=== PATIENT | male | born 1980 | race Hispanic/Latino ===

== ENCOUNTER 2017-07-29 11:12 | Inpatient (IN) | payer OTHER ==
[2017-07-28 21:50] VITALS: BP 136/70
[~2017-07-29] VITALS: Ht 165.1 cm; Wt 79.4 kg
[2017-07-29] MEDS ORDERED: ACETAMINOPHEN 325 MG TAB PO STA (12:06)
[2017-07-29 13:23] LABS: BILIRUBIN,URINE NEGATIVE (NEGATIVE); CLARITY,URINE SL CLOUDY (CLEAR); COLOR,URINE YELLOW (YELLOW); KETONES,URINE NEGATIVE (NEGATIVE); LEUKOCYTE ESTERASE ,URINE TRACE (NEGATIVE); NITRITE,URINE NEGATIVE (NEGATIVE); PROTEIN,URINE DIPSTICK NEGATIVE (NEGATIVE); URINE UROBILINOGEN 0.2 mg/dL (0.2 - 1)
[2017-07-29 13:37] LABS: EPITHELIAL CELLS,URINE RARE /LPF; WBC,URINE (MAN) 0-5 /HPF (0-5)
[2017-07-29 13:38] LABS: CALCIUM OXALATE CRYSTALS,UR FEW (FEW)
--- NOTE | 2017-07-29 13:56 | Diagnostic Imaging Report ---
PROCEDURE: X-RAY CHEST, TWO VIEWS COMPARISON: None. INDICATIONS: HANDS AND FEET SWOLLEN AND PNEUMONIA FINDINGS: LUNGS: Left upper lobe airspace opacity. Nodular density in the lung bases may represent a nipple shadows. PLEURA: No effusions or pneumothorax. HEART \T\ MEDIASTINUM: The heart is within normal size-limits. BONES \T\ SOFT TISSUES: No acute findings. CONCLUSION: Left upper lobe pneumonia. Grabiel Parkinson D.O. Dictated by: Grabiel Parkinson D.O. on 07/29/2017 at 13:56 Electronically approved by: Grabiel Parkinson D.O. on 07/29/2017 at 13:56
[2017-07-29 14:12] LABS: BASOPHILS # (AUTO) 0.1 (0.0-0.1); BASOPHILS % 0.5 % (0.0-1.0); EOSINOPHILS # (AUTO) 0.4 (0.0-0.4); EOSINOPHILS % 2.7 % (0.0-6.0); HEMATOCRIT 39.4 % (38.2-49.6); HEMOGLOBIN 13.5 g/dL (14.0-18.0); LYMPHOCYTES # (AUTO) 1.8 (1.0-3.2); LYMPHOCYTES % 14.1 % (18.0-39.1); MEAN CORPUSCULAR HEMOGLOBIN 28.4 pg (28-32); MEAN CORPUSCULAR HGB CONC 34.3 g/dL (31-35); MEAN CORPUSCULAR VOLUME 82.8 fL (81-99); MONOCYTES # (AUTO) 1.4 (0.2-0.8); MONOCYTES % 11.1 % (4.4-11.3); NEUTROPHILS # (AUTO) 9.2 (2.1-6.9); NEUTROPHILS % 70.8 % (38.7-80.0); PLATELET COUNT 309 x10e3/uL (140-360); RED BLOOD COUNT 4.76 x10e6/uL (4.3-5.7); RED CELL DISTRIBUTION WIDTH 11.7 % (11.7-14.4)
[2017-07-29 14:40] LABS: ALANINE AMINOTRANSFERASE 24 IU/L (0-55); ALBUMIN 3.5 g/dL (3.5-5.0); ALBUMIN/GLOBULIN RATIO 0.7 (0.8-2.0); ALKALINE PHOSPHATASE 72 IU/L (40-150); ANION GAP 15.5 mmol/L (8-16); BLOOD UREA NITROGEN 8 mg/dL (7-26); BUN/CREATININE RATIO 10 (6-25); CALCIUM 9.1 mg/dL (8.4-10.2); CARBON DIOXIDE 23 mmol/L (22-29); CHLORIDE 102 mmol/L (98-107); CREATININE, SERUM 0.77 mg/dL (0.72-1.25); EST GLOMERULAR FILTRATION RATE > 60 ML/MIN (60-); GLUCOSE 102 mg/dL (74-118); POTASSIUM 3.5 mmol/L (3.5-5.1); SODIUM 137 mmol/L (136-145)
[2017-07-29] MEDS ORDERED: VANCOMYCIN HCL 1GM/NS 250 ML BAG IV SCH (15:30)
[2017-07-29] MEDS ORDERED: VANCOMYCIN 1GM/NS 250 ML 250 ML IV SCH (16:00)
--- OUTSIDE RECORDS SUMMARY | 2017-07-29 16:01 | XMS REPORT ---
Author Author [facility] Address Unknown Phone Unavailable Care Team Providers Care Traffic Maintenance Officer Name Role Phone ELENA NARANJO Unavailable Unavailable Problems This patient has no known problems. Allergies, Adverse Reactions, Alerts This patient has no known allergies or adverse reactions. Medications This patient has no known medications. Results Test Description Test Time Test Comments Text Results Atomic Results Result Comments CHEST 2 VIEWS [place] [id number] Patient Name: JUANJOSE KHANNA MR #: [id number] : 1980 Age/Sex: 37/M Req # : [id number] Adm Physician: Ordered by: ELENA NARANJO MD Report #: [id number] Location: ER Room/Bed: Procedure: [id number] DX/CHEST 2 VIEWS Exam Date: 07/29/17 Exam Time : 1252 REPORT STATUS: Signed PROCEDURE: X-RAY CHEST, TWO VIEWS COMPARISON: None. INDICATIONS: HANDS AND FEET SWOLLEN AND PNEUMONIA FINDINGS: LUNGS: Left upper lobe airspace opacity. Nodular density in the lung bases may represent a nipple shadows. PLEURA: No effusions or pneumothorax. HEART T MEDIASTINUM: The heart is within normal size- limits. BONES T SOFT TISSUES: No acute findings. CONCLUSION : Left upper lobe pneumonia. Moses Rosales D.O. Dictated by : Moses Rosales D.O. on 07/29/2017 at 13:56 Electronically approved by: Moses Rosales D.O. on 07/29/2017 at 13:56 Dictated By: MOSES ROSALES DO [id number] Transcribed By: PRATIK on 07/29/17 1356 COPY TO: ELENA NARANJO MD
[2017-07-29] MEDS: SODIUM CHLORIDE 0.9% 1000ML 1,000 ML IV SCH ×2 (16:45→22:08)
[2017-07-29] MEDS ORDERED: ACETAMINOPHEN/CODEINE 300MG - 30MG TAB PO PRN (17:00)
[2017-07-29] MEDS: AZITHROMYCIN 500MG/NS 250 ML 250 ML IV SCH (19:34)
[2017-07-29] MEDS: ALBUTEROL/IPRATROPIUM 3 ML NEB NEB SCH (20:10)
[2017-07-29 20:20] VITALS: BP 136/70
[2017-07-29] MEDS: GUAIFENESIN/CODEINE 10 ML CUP PO PRN (20:45)
[2017-07-29] MEDS: PIPER-TAZ 3.375 GM 50 ML IV SCH (22:08)
[2017-07-29] MEDS: ACETAMINOPHEN 325 MG TAB PO PRN (22:19)
[2017-07-30] VITALS (7 sets, daily range): BP systolic 118–154; BP diastolic 61–94
[2017-07-30] MEDS: ALBUTEROL/IPRATROPIUM 3 ML NEB NEB SCH ×4 (01:40→19:52)
[2017-07-30] MEDS: PIPER-TAZ 3.375 GM 50 ML IV SCH (05:46)
[2017-07-30] MEDS: GUAIFENESIN/CODEINE 10 ML CUP PO PRN ×2 (05:51→14:13)
--- NOTE | 2017-07-30 09:40 | Consultation ---
DATE OF CONSULTATION: July 29, 2017 PULMONARY CONSULTATION A patient of Dr. Aparicio. 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 The cough has been nonproductive. He also is complaining of pain in the right side and some tenderness. He has been on amoxicillin. HAS NO ALLERGIES. Has had appendectomy in the past. FAMILY HISTORY: Father had pancreatic cancer. He does not smoke or drink. PHYSICAL EXAMINATION VITAL SIGNS: Temperature is 100.1, pulse 89, respiration 16, blood pressure 129/83. GENERAL: He is a well-developed white male, anxious, coughing. LUNGS: Rales at the left upper lung zone. HEART: Regular rhythm. ABDOMEN: Nontender. EXTREMITIES: Nonedematous. IMPRESSION: One of community-acquired pneumonia, possible atypical, not responding to amoxicillin. Will add Zithromax to regimen. He is currently on Zosyn and vancomycin. Infectious Disease has been consulted. Will add bronchodilators, Tylenol with Codeine, Robitussin with codeine. Thank you for this kind referral. Job#: [id number] EV
--- NOTE | 2017-07-30 12:57 | Progress Note ---
DATE: PROGRESS NOTE Mr. Mcghee is feeling better today, is still having cough. There are no new complaints. His fever has subsided. His cultures are pending. His laboratory data reviewed. PHYSICAL EXAMINATION GENERAL: He is currently alert and oriented, does not seem to be in acute distress. VITAL SIGNS: Stable; currently afebrile. HEENT: Not icteric. NECK: Supple. CHEST: Clear bilaterally. COR: S1 and S2, no murmur. ABDOMEN: Soft. IMPRESSION AND PLAN: Pneumonia; some improvement, is still sick. Continue with currently dosed IV antibiotics. His influenza was negative. Blood culture is still pending. We will follow with you. Job#: [id number] JORDY
[2017-07-30 13:27] LABS: HIV 1&2 AB SCREEN NON-REACTIVE (NONREACTIVE)
[2017-07-30] MEDS ORDERED: SODIUM CHLORIDE 0.9% 250ML 250 ML ONE (14:39)
--- NOTE | 2017-07-30 14:46 | History and Physical ---
CHIEF COMPLAINT: Persistent cough. HISTORY OF PRESENT ILLNESS: This 37-year-old man presents to [facility] emergency room with a one month history of worsening cough. The patient states this is actually his third admission to a hospital for pneumonia. In the emergency room, the patient had a chest x-ray performed which revealed left upper lobe pneumonia. The patient's white blood cell count in the emergency room was 12,900 with 71% segmented neutrophils. Blood chemistries were unremarkable. The patient's lactic acid was normal at 9.7. The patient was admitted for further evaluation and treatment. REVIEW OF SYSTEMS: GENERAL: He has had fever and chills intermittently for the last month. Weight has been stable. HEENT: No headaches, no visual changes. CARDIOVASCULAR/RESPIRATORY: He has had persistent cough for the last month. Denies any chest pain or tightness. GI: Denies any nausea or vomiting. : Denies any UTI or BPH. NEUROMUSCULAR: Denies any limb weakness or numbness. ALLERGIES: AMOXICILLIN. FAMILY HISTORY: Noncontributory. SOCIAL HISTORY: He is . He is employed as a fork driver lifter of sanitation truck. Denies tobacco use. PAST MEDICAL HISTORY: None. PAST SURGICAL HISTORY: Appendectomy. HOME MEDICATIONS: None. PHYSICAL EXAMINATION GENERAL: He is awake, alert with numerous family members at bedside. VITAL SIGNS: Height 5 feet, 5 inches, weight 175 pounds. Calculated body mass index is 29. INTEGUMENT: Skin is warm and dry. No pallor, jaundice, diaphoresis. The patient has widespread erythematous papules consistent with allergic drug reaction. HEENT: Anicteric sclerae with moist mucous membranes. NECK: Supple. CARDIOVASCULAR: Tachycardia heart rate, regular rhythm. LUNGS: Crackles in the bibasilar area. No dullness to percussion. ABDOMEN: Benign. EXTREMITIES: No edema or deformity. NEUROLOGIC: Intact. DIAGNOSES 1. Sepsis secondary to left upper lobe pneumonia. 2. Left upper lobe pneumonia 3. Allergic drug reaction (penicillin). PLAN: 1. Will stop all penicillin-based medications, namely Zosyn. 2. Intravenous cefepime. 3. Intravenous vancomycin. 4. Followup blood cultures. 5. Agree with checking HIV status as per infectious disease specialist. 6. Will order Tessalon Perles 100 mg t.i.d., schedule for the patient's chronic cough. 7. Agree with guaifenesin with codeine for the patient's cough. 8. Follow white blood cell count. I spent 45 minutes in the care of the patient. Job#: [id number] GH MTDD
[2017-07-30] MEDS: BENZONATATE 100 MG CAP PO SCH ×2 (14:49→21:06)
[2017-07-30] MEDS: CEFEPIME HCL 1 GM VIAL IV SCH ×2 (14:49→23:00)
[2017-07-30] MEDS ORDERED: KETOROLAC TROMETHAMINE 60 MG/2 ML VIAL IM NR (16:30)
--- NOTE | 2017-07-30 17:25 | Diagnostic Imaging Report ---
History: Unresponsive Comparison studies: None Technique: Axial images were obtained from the skull base to the vertex. Coronal and sagittal reconstructions obtained from the axial data. Findings: Scalp/skull: No abnormalities. No fractures, blastic or lytic lesions. Extra-axial spaces: No masses. No fluid collections. Brain sulci: Appropriate for age. Ventricles: Normal in size and configuration. No hydrocephalus. Parenchyma: No abnormal densities. No masses, hemorrhage, acute or chronic cortical vascular insults. Sellar/suprasellar region: No abnormalities Craniocervical junction: Patent foramen magnum. No Chiari one malformation. IMPRESSION: No abnormalities . Signed by: DR Westley Sheffield M.D. on 07/30/2017 5:21 PM
[2017-07-30] MEDS: AZITHROMYCIN 500MG/NS 250 ML 250 ML IV SCH (17:31)
[2017-07-30 17:41] LABS: BASOPHILS % 0.3 % (0.0-1.0); EOSINOPHILS # (AUTO) 0.6 (0.0-0.4); EOSINOPHILS % 4.2 % (0.0-6.0); HEMATOCRIT 34.7 % (38.2-49.6); HEMOGLOBIN 12.1 g/dL (14.0-18.0); LYMPHOCYTES # (AUTO) 1.4 (1.0-3.2); LYMPHOCYTES % 10.9 % (18.0-39.1); MEAN CORPUSCULAR HEMOGLOBIN 28.7 pg (28-32); MEAN CORPUSCULAR HGB CONC 34.9 g/dL (31-35); MEAN CORPUSCULAR VOLUME 82.2 fL (81-99); MONOCYTES # (AUTO) 1.1 (0.2-0.8); NEUTROPHILS % 75.9 % (38.7-80.0); PLATELET COUNT 305 x10e3/uL (140-360); RED BLOOD COUNT 4.22 x10e6/uL (4.3-5.7); RED CELL DISTRIBUTION WIDTH 11.7 % (11.7-14.4)
[2017-07-30 17:58] LABS: ANION GAP 14.8 mmol/L (8-16); BLOOD UREA NITROGEN 8 mg/dL (7-26); BUN/CREATININE RATIO 10 (6-25); CALCIUM 8.8 mg/dL (8.4-10.2); CARBON DIOXIDE 22 mmol/L (22-29); CHLORIDE 105 mmol/L (98-107); CREATININE, SERUM 0.78 mg/dL (0.72-1.25); EST GLOMERULAR FILTRATION RATE > 60 ML/MIN (60-); GLUCOSE 118 mg/dL (74-118); POTASSIUM 3.8 mmol/L (3.5-5.1); SODIUM 138 mmol/L (136-145)
--- NOTE | 2017-07-30 18:56 | Consultation ---
DATE OF CONSULTATION: July 29, 2017 HISTORY OF PRESENT ILLNESS: This patient was seen on July 29, 2017 in the emergency room and evaluated. Discussed with ER. I was not able to dictate the note till later. This patient is a very pleasant 37-year-old male. He denies any past medical history. Apparently, he has been sick for almost a month now. He was noted to have cough and shortness of breath. He went to see his physician, who gave him oral antibiotic. He was checked for flu and apparently, it was negative, but the patient continued to have cough and not feeling well. Then, he went to the urgent care, he was given different form of antibiotics which they are both not available. The patient then came to the emergency room here because he is not feeling well. He is having fever, chills, muscle aches, and pain all over. He is having pains in the joints, swelling in his joints, mainly ankles and elbows. The patient came to emergency room where he was evaluated. The patient when I saw him was complaining of cough, sometimes he got nausea, occasional vomiting from the coughing. He does have sore throat. He does have shortness of breath. He does have some chest discomfort occasionally. The cough is dry. Mainly what bother him the most now is the pain in joints, ankles, and elbows. PAST MEDICAL HISTORY: He denies. PAST SURGICAL HISTORY: He denies. He has history of appendectomy several years ago. ALLERGIES: NKA. SOCIAL HISTORY: There is no smoking, drug abuse, or alcohol abuse. There is no recent travel. No pets. PHYSICAL EXAMINATION GENERAL: He is alert and oriented. Does not seem to be in acute distress. VITALS: Stable. Temperature 99.2, heart rate 98, respirations 19, blood pressure was within normal limits. He did have a temperature of 100.1 when he first came in the emergency room. HEENT: He is normocephalic. Not appear icteric. PERRLA. NECK: Supple. No JVD. No lymphadenopathy. No thyromegaly. CHEST: Clear bilateral. COR: S1, S2. No S3, S4, or murmur. ABDOMEN: Soft. No tenderness. No hepatosplenomegaly. EXTREMITIES: There is no edema, but the joint of both ankles seem to be edematous, more soft tissue swelling. No actual effusion. IMAGING: Chest x-ray revealed some left upper lobe infiltrate. IMPRESSION: I think the patient has pneumonia, probably superimposed viral pneumonia and pneumonitis, failed oral antibiotic. He is currently on Zosyn, vancomycin, and azithromycin. Continue with the same. We will check for HIV, check for legionella, check for mycoplasma, check for atypical pathogen with blood cultures and sputum cultures. 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 We will just use Motrin at the present time. We will check again for influenza, although it was checked twice and was negative. Discussed with the family. We will follow with you. Job#: [id number] JESSI
[2017-07-30] MEDS: VANCOMYCIN 1GM/NS 250 ML 250 ML IV SCH (21:06)
[2017-07-31] VITALS (7 sets, daily range): BP systolic 122–147; BP diastolic 60–80
[2017-07-31] MEDS: GUAIFENESIN/CODEINE 10 ML CUP PO PRN ×2 (00:59→18:11)
[2017-07-31] MEDS: ALBUTEROL/IPRATROPIUM 3 ML NEB NEB SCH ×4 (01:35→19:47)
[2017-07-31] MEDS: CEFEPIME HCL 1 GM VIAL IV SCH ×3 (05:58→22:30)
[2017-07-31 06:20] LABS: BASOPHILS # (AUTO) 0.1 (0.0-0.1); BASOPHILS % 0.6 % (0.0-1.0); EOSINOPHILS # (AUTO) 0.7 (0.0-0.4); EOSINOPHILS % 7.7 % (0.0-6.0); HEMATOCRIT 33.9 % (38.2-49.6); HEMOGLOBIN 11.5 g/dL (14.0-18.0); LYMPHOCYTES # (AUTO) 1.7 (1.0-3.2); LYMPHOCYTES % 17.6 % (18.0-39.1); MEAN CORPUSCULAR HEMOGLOBIN 28.3 pg (28-32); MEAN CORPUSCULAR HGB CONC 33.9 g/dL (31-35); MEAN CORPUSCULAR VOLUME 83.5 fL (81-99); MONOCYTES # (AUTO) 0.8 (0.2-0.8); MONOCYTES % 8.4 % (4.4-11.3); NEUTROPHILS # (AUTO) 6.3 (2.1-6.9); NEUTROPHILS % 65.1 % (38.7-80.0); PLATELET COUNT 285 x10e3/uL (140-360); RED BLOOD COUNT 4.06 x10e6/uL (4.3-5.7); RED CELL DISTRIBUTION WIDTH 11.8 % (11.7-14.4)
[2017-07-31 06:44] LABS: ALANINE AMINOTRANSFERASE 19 IU/L (0-55); ALBUMIN 2.8 g/dL (3.5-5.0); ALBUMIN/GLOBULIN RATIO 0.7 (0.8-2.0); ALKALINE PHOSPHATASE 54 IU/L (40-150); ANION GAP 13.5 mmol/L (8-16); BLOOD UREA NITROGEN 9 mg/dL (7-26); BUN/CREATININE RATIO 13 (6-25); CALCIUM 8.6 mg/dL (8.4-10.2); CARBON DIOXIDE 23 mmol/L (22-29); CHLORIDE 105 mmol/L (98-107); EST GLOMERULAR FILTRATION RATE > 60 ML/MIN (60-); GLUCOSE 93 mg/dL (74-118); POTASSIUM 3.5 mmol/L (3.5-5.1); SODIUM 138 mmol/L (136-145)
[2017-07-31] MEDS: VANCOMYCIN 1GM/NS 250 ML 250 ML IV SCH ×2 (08:04→20:39)
[2017-07-31] MEDS: BENZONATATE 100 MG CAP PO SCH ×3 (08:04→20:39)
[2017-07-31] MEDS: AZITHROMYCIN 500MG/NS 250 ML 250 ML IV SCH (16:11)
[2017-07-31] MEDS: ACETAMINOPHEN 325 MG TAB PO PRN (20:39)
[2017-08-01] VITALS (8 sets, daily range): BP systolic 119–137; BP diastolic 66–84
--- NOTE | 2017-08-01 01:05 | Progress Note ---
DATE: Mr. Mcghee is feeling much better. His shortness of breath is better. He is still having minimum cough, but there are now new lesions on his legs, like small nodules, he is saying, but the pain in the ankles is better. PHYSICAL EXAMINATION GENERAL: He is currently alert and oriented, does not seem to be in acute distress. VITAL SIGNS: Stable; currently afebrile. HEENT: He is normocephalic, not icteric. NECK: Supple. CHEST: Clear bilaterally. COR: S1 and S2, no murmur. ABDOMEN: Soft. Bowel sounds are present. No tenderness. EXTREMITIES: No edema. He has small subcutaneous nodules, like 1 cm scattered on his lower extremities. LABORATORY DATA: Reviewed. His white count is 9.65, hemoglobin 11.5. His sodium 138, potassium 3.8. Liver enzymes within normal limits. His HIV was negative. Influenza was negative. Other serologies still pending. IMPRESSIONS 1. Pneumonia, slowly getting better. He is currently on cefepime, vancomycin, and azithromycin. 2. post pneumonia inflammatory process with arthralgia, arthritis, and now subcutaneous nodules. PLAN: He seems to be clinically stable. I am going to observe the patient for now. We discussed treatment with Dr. Junior, but I think to hold off for now and see how he is going to do tomorrow. Job#: [id number]
[2017-08-01] MEDS: ALBUTEROL/IPRATROPIUM 3 ML NEB NEB SCH ×4 (01:33→19:48)
[2017-08-01] MEDS: CEFEPIME HCL 1 GM VIAL IV SCH ×3 (05:45→21:59)
[2017-08-01 06:45] LABS: BASOPHILS # (AUTO) 0.1 (0.0-0.1); BASOPHILS % 0.6 % (0.0-1.0); EOSINOPHILS # (AUTO) 0.7 (0.0-0.4); EOSINOPHILS % 6.6 % (0.0-6.0); HEMATOCRIT 37.7 % (38.2-49.6); HEMOGLOBIN 12.2 g/dL (14.0-18.0); LYMPHOCYTES # (AUTO) 1.9 (1.0-3.2); LYMPHOCYTES % 17.1 % (18.0-39.1); MEAN CORPUSCULAR HEMOGLOBIN 27.7 pg (28-32); MEAN CORPUSCULAR HGB CONC 32.4 g/dL (31-35); MEAN CORPUSCULAR VOLUME 85.7 fL (81-99); MONOCYTES # (AUTO) 1.2 (0.2-0.8); MONOCYTES % 10.8 % (4.4-11.3); NEUTROPHILS % 64.2 % (38.7-80.0); PLATELET COUNT 349 x10e3/uL (140-360); RED CELL DISTRIBUTION WIDTH 11.6 % (11.7-14.4)
--- NOTE | 2017-08-01 06:50 | Diagnostic Imaging Report ---
EXAM: CHEST SINGLE (PORTABLE), AP 1 view INDICATION: Pneumonia left upper lung COMPARISON: PA and lateral view of the chest July 29, 2017 FINDINGS: LINES/TUBES: None LUNGS: Left upper lung consolidation. PLEURA: No effusions or pneumothorax. HEART AND MEDIASTINUM: Normal size and contour. BONES AND SOFT TISSUES: No acute findings. IMPRESSION: Stable appearance of left upper lung pneumonia. Follow-up chest x-ray is recommended to ensure resolution and exclude underlying mass. Signed by: Dr. Rashmi Castellanos M.D. on 08/01/2017 6:47 AM
[2017-08-01 07:20] LABS: ALANINE AMINOTRANSFERASE 23 IU/L (0-55); ALBUMIN 2.9 g/dL (3.5-5.0); ALBUMIN/GLOBULIN RATIO 0.6 (0.8-2.0); ALKALINE PHOSPHATASE 64 IU/L (40-150); BLOOD UREA NITROGEN 9 mg/dL (7-26); BUN/CREATININE RATIO 12 (6-25); CALCIUM 9.2 mg/dL (8.4-10.2); CARBON DIOXIDE 24 mmol/L (22-29); CHLORIDE 104 mmol/L (98-107); CREATININE, SERUM 0.73 mg/dL (0.72-1.25); EST GLOMERULAR FILTRATION RATE > 60 ML/MIN (60-); GLUCOSE 96 mg/dL (74-118); SODIUM 136 mmol/L (136-145)
[2017-08-01] MEDS: BENZONATATE 100 MG CAP PO SCH ×3 (09:09→21:30)
[2017-08-01] MEDS: VANCOMYCIN 1GM/NS 250 ML 250 ML IV SCH ×2 (09:09→21:30)
[2017-08-01] MEDS: BUDESONIDE 0.5MG/2 ML NEB INH SCH (19:48)
[2017-08-01] MEDS: AZITHROMYCIN 500MG/NS 250 ML 250 ML IV SCH (20:11)
[2017-08-01] MEDS: METHYLPREDNISOLONE SOD SUCC 40 MG/ML VIAL IV SCH (21:30)
[2017-08-02] VITALS (9 sets, daily range): BP systolic 107–150; BP diastolic 60–87
[2017-08-02] MEDS: ALBUTEROL/IPRATROPIUM 3 ML NEB NEB SCH ×4 (01:20→19:30)
[2017-08-02] MEDS: CEFEPIME HCL 1 GM VIAL IV SCH ×3 (06:09→22:00)
[2017-08-02] MEDS: BUDESONIDE 0.5MG/2 ML NEB INH SCH ×2 (07:03→19:30)
[2017-08-02] MEDS: METHYLPREDNISOLONE SOD SUCC 40 MG/ML VIAL IV SCH ×2 (09:31→20:50)
[2017-08-02] MEDS: BENZONATATE 100 MG CAP PO SCH ×3 (09:32→20:51)
[2017-08-02] MEDS: VANCOMYCIN 1GM/NS 250 ML 250 ML IV SCH (09:32)
[2017-08-02] MEDS: AZITHROMYCIN 500MG/NS 250 ML 250 ML IV SCH (17:00)
[2017-08-02] MEDS ORDERED: SODIUM CHLORIDE 0.9% 250ML 0 ML ONE (20:59)
[2017-08-02] MEDS: VANCOMYCIN HCL 1.25 GM in SODIUM CHLORIDE 0.9% 250ML 250 ML IV SCH (21:00)
--- NOTE | 2017-08-02 21:33 | Diagnostic Imaging Report ---
EXAM: CT Chest WITHOUT contrast 08/02/2017 6:49 PM INDICATION: Pneumonia. COMPARISON: Chest x-ray on 08/01/2017 TECHNIQUE: Chest was scanned utilizing a multidetector helical scanner from the lung apex through the level of the adrenal glands without administration of IV contrast. Absence of intravenous contrast decreases sensitivity for detection of lymphadenopathy and vascular pathology. Coronal and sagittal reformations were obtained. Routine protocol was performed. IV CONTRAST: None RADIATION DOSE: Total DLP: 527.21 mGy*cm Estimated effective dose: (DLP x 0.014 x size factor) mSv COMPLICATIONS: None FINDINGS: LINES/ TUBES: None. LUNGS AND AIRWAYS: Confluent airspace opacity involving the left upper lobe with air bronchogram acid with multiple tree-in-bud nodular opacities in the left upper lobe and superior segment of the left lower lobe. Airways are normal. PLEURA: The pleural spaces are clear. HEART AND MEDIASTINUM: The thyroid gland is normal. Para-aortic, aortopulmonary and left hilar adenopathy. The heart is normal in size.. There is no pericardial effusion. UPPER ABDOMEN: Diffuse hepatic steatosis with areas of focal fatty sparing. BONES: There are mild degenerative changes in the thoracic spine. SOFT TISSUES: Unremarkable. IMPRESSION: 1. Left upper lobe and superior segment of the left lower lobe multifocal pneumonia. 2. Follow-up until resolution after treatment is recommended. 3. Diffuse hepatic steatosis. Signed by: Dr. Willy Flores M.D. on 08/02/2017 9:30 PM
[2017-08-03] MEDS: ALBUTEROL/IPRATROPIUM 3 ML NEB NEB SCH ×4 (01:22→20:15)
[2017-08-03 01:54] VITALS: BP 114/63
[2017-08-03 04:59] VITALS: BP 99/54
[2017-08-03] MEDS: CEFEPIME HCL 1 GM VIAL IV SCH ×3 (05:28→21:32)
[2017-08-03] MEDS: BUDESONIDE 0.5MG/2 ML NEB INH SCH ×2 (07:00→20:15)
[2017-08-03 08:00] VITALS: BP 144/84
[2017-08-03] MEDS: BENZONATATE 100 MG CAP PO SCH ×3 (10:06→21:32)
[2017-08-03] MEDS ORDERED: SODIUM CHLORIDE 0.9% 250ML 250 ML ONE (10:31)
[2017-08-03] MEDS: GUAIFENESIN/CODEINE 10 ML CUP PO PRN (10:35)
[2017-08-03] MEDS: METHYLPREDNISOLONE SOD SUCC 40 MG/ML VIAL IV SCH (10:45)
[2017-08-03] MEDS: VANCOMYCIN HCL 1.25 GM in SODIUM CHLORIDE 0.9% 250ML 250 ML IV SCH ×2 (10:45→21:32)
[2017-08-03 12:00] VITALS: BP 147/92
[2017-08-03 16:00] VITALS: BP 137/81
[2017-08-03] MEDS: AZITHROMYCIN 500MG/NS 250 ML 250 ML IV SCH (16:15)
[2017-08-03 20:00] VITALS: BP 132/82
[2017-08-03] MEDS ORDERED: SODIUM CHLORIDE 0.9% 250ML 500 ML ONE (20:53)
[2017-08-04] VITALS: BP 123/77
[2017-08-04 00:10] VITALS: BP 123/77
[2017-08-04] MEDS: ALBUTEROL/IPRATROPIUM 3 ML NEB NEB SCH ×2 (00:30→07:25)
[2017-08-04 04:00] VITALS: BP 121/84
[2017-08-04] MEDS: CEFEPIME HCL 1 GM VIAL IV SCH (05:24)
[2017-08-04] MEDS: BUDESONIDE 0.5MG/2 ML NEB INH SCH (07:10)
[2017-08-04 07:39] VITALS: BP 127/82
[2017-08-04] MEDS: BENZONATATE 100 MG CAP PO SCH (09:45)
[2017-08-04] MEDS: VANCOMYCIN HCL 1.25 GM in SODIUM CHLORIDE 0.9% 250ML 250 ML IV SCH (09:45)
[2017-08-04 12:16] VITALS: BP 128/75
--- NOTE | 2017-08-04 13:59 | Discharge Summary ---
Mr. Mcghee is a 37-year-old man with no prior medical history, came to the emergency room complaining of a whole month of cough, went to 2 different emergency rooms. He was told he had pneumonia, but then he was sent home. Seen in the clinic, he could hardly walk, he was febrile, very weak, and had subcutaneous nodules on his arms and legs, so he was sent to [facility] for admission and started on IV antibiotics. Infectious disease and pulmonary consult on him. At present time, he has been here almost a week. He is doing much better and the plan is to discharge him home and have him follow up as an outpatient. On physical examination, he is awake and alert. Temperature is 96.7 and blood pressure 127/82. Heart has regular rate. Lungs are clear to auscultation. Abdomen is soft. On the blood work, potassium 4.0, creatinine is 0.73, glucose is 96, white count is 10.9, hemoglobin is 12.2, and hematocrit is 37.7. The CAT scan of the chest showed a multifocal pneumonia. DISCHARGE DIAGNOSES ON THIS PATIENT 1. Sepsis secondary to pneumonia. 2. Multifocal pneumonia. 3. Subcutaneous nodules, resolving. The plan is to discharge the patient home today if okay with ID and pulmonary consult. Continue Levaquin 750 mg daily for 2 more weeks. Continue albuterol nebulizations. He needs to follow up with me in 1 week. As per pulmonary doctor in 1 month, he is going to need to have a repeat CT of the chest to confirm resolution of the infiltrate. All this was discussed with the patient and at bedside. All questions were answered to satisfaction. Please see home medication reconciliation list. GALILEA BECK MD Job#: [id number] TAMMY
== END 2017-08-04 12:42 | disposition home or self-care (01) | DRG 871 ==
LOC: ER 11:12 → ERHOLD 15:58 → MED/SURG2 20:09
PROVIDERS: ADMIT Internal Medicine; ATTEND Internal Medicine
DX: A41.9 Sepsis, unspecified organism (principal); J12.9 Viral pneumonia, unspecified; R22.40 Localized swelling, mass and lump, unspecified lower limb; R22.30 Localized swelling, mass and lump, unspecified upper limb; M19.90 Unspecified osteoarthritis, unspecified site; J45.909 Unspecified asthma, uncomplicated
CPT/HCPCS: 36415; 70450; 71045; 71046; 71250; 80048; 80053; 80202; 81001; 83605; 85025; 86631; 86738; 87040; 87070; 87086; 87205; 87390; 87400; 94640; 96367; 96375; 96376; 99284; G0433; G0435; J0456; J0692; J1885; J2543; J2920; J3370; J7030; J7050

== ENCOUNTER → 2017-08-23 | Outpatient (CLI) | payer OTHER ==
--- NOTE | 2017-08-23 09:02 | Diagnostic Imaging Report ---
PROCEDURE:CT CHEST WITHOUT CONTRAST COMPARISON:[facility], CT, CT CHEST WO, 08/02/2017, 20:20. INDICATIONS:PNEUMONIA TECHNIQUE: Routine protocol Volumetric CT chest. No intravenous or enteric contrast. Multiplanar reformatted images. DLP: 528.05 FINDINGS: Lungs: Persistent left upper lobe airspace consolidation with innumerable peripheral predominant subcentimeter pulmonary nodules. Slight decrease in left lower lobe nodular airspace opacity (image 53, series 3). No new foci of airspace opacity. Pulmonary nodules: Bilateral subcentimeter pulmonary nodules (left greater than right) similar in size and configuration to August 02, 2017. For example, right upper lobe image 39, 43 and 47, series 3, right middle lobe image 63, right lower lobe image 59, 71 and 82. Multiple left-sided pulmonary nodules, for example image 25, 28, 46 and left lower lobe image 50, 70 and 79. Pleura: Normal Airways: Normal Lymph nodes: AP window node slightly decreased in size from 1.2 cm to 1 cm in short axis diameter (image 38). Pulmonary arteries: Normal caliber Thoracic aorta and great vessels: Normal caliber Heart and pericardium: Normal Subdiaphragmatic organs: Diffuse low-attenuation of the liver consistent with steatosis. Otherwise, normal. Skeleton: Mild degenerative disc disease. Otherwise, normal Soft tissues: Normal CONCLUSION: Left upper and lower lobe consolidative airspace opacity, as well as multiple subcentimeter bilateral pulmonary nodules, are essentially unchanged from August 02, 2017. While radiographic resolution may lack clinical improvement the presence of persistent airspace opacities in the setting of treated pneumonia is suspicious for alternative etiologies such as atypical pneumonia or adenocarcinoma in situ. Dictated by: Ronni Dean M.D. on 08/23/2017 at 9:03 Electronically approved by: Ronni Dean M.D. on 08/23/2017 at 9:03
== END ==
LOC: CT 07:45
PROVIDERS: ATTEND Internal Medicine
DX: R05 Cough (principal)
CPT/HCPCS: 71250; 94060; 94727; 94729